=== PATIENT | female | born 1970 | race Caucasian/White ===

== ENCOUNTER 2017-01-23 17:48 | Emergency (ER) | payer OTHER ==
[~2017-01-23] VITALS: Ht 157.5 cm; Wt 122.5 kg
[~2017-01-23 17:48] MED LIST: ASPI81CT89 PO; ATI.5 PO; CARV3.12 PO; LOVA10TA2 PO; METF500T PO; ORE25 PO; RANI-287 PO; SYN.05 PO; [UNRECOGNIZED DRUG - CODE] PO; [UNRECOGNIZED DRUG - CODE] PO
[2017-01-23 17:49] VITALS: BP 158/93
[2017-01-23 19:33] LABS: BASOPHILS # (AUTO) 0.1 K/uL (0.00-0.22); EOSINOPHILS # (AUTO) 0.4 K/uL (0-0.4); EOSINOPHILS % (AUTO) 3.8 % (0.0-4.0); HEMATOCRIT 38.9 % (36-48); HEMOGLOBIN 12.6 g/dL (12.0-16.0); LYMPHOCYTES # (AUTO) 2.5 K/uL (2.5-16.5); LYMPHOCYTES % (AUTO) 21.4 % (20.5-51.1); MEAN CORPUSCULAR HEMOGLOBIN 27 pg (27-31); MEAN CORPUSCULAR HGB CONC 32 g/dL (33-37); MEAN CORPUSCULAR VOLUME 83 fL (80-94); MONOCYTES # (AUTO) 0.6 K/uL (0.8-1.0); MONOCYTES % (AUTO) 5.5 % (1.7-9.3); NEUTROPHILS % (AUTO) 68.3 % (42.2-75.2); PLATELET COUNT (AUTO) 288 K/uL (140-450); RED BLOOD CELL COUNT(AUTO) 4.71 MIL/uL (4.20-5.40); RED CELL DISTRIBUTION WIDTH 12.7 % (11.6-13.7); WHITE BLOOD COUNT (AUTO) 11.6 K/uL (4.8-10.8)
[2017-01-23 19:36] LABS: APPEARANCE,URINE CLEAR (CLEAR); BILIRUBIN,URINE NEGATIVE (NEGATIVE); BLOOD, URINE NEGATIVE (NEGATIVE); COLOR,URINE YELLOW (YELLOW); LEUKOCYTE ESTERASE ,URINE NEGATIVE (NEGATIVE); NITRITE, URINE NEGATIVE (NEGATIVE); UGLUCOSE NEGATIVE (NEGATIVE)
[2017-01-23 19:46] LABS: ANION GAP 15.1 (8-16); CARBON DIOXIDE 23.6 mmol/L (21-32); CHLORIDE 106 mmol/L (98-107); CREATININE 0.9 mg/dL (0.6-1.3); GFR ARICAN-AMERICAN 86 mL/min (>90); GLUCOSE 118 mg/dL (74-106); POTASSIUM 3.7 mmol/L (3.5-5.1); SODIUM SERUM 141 mmol/L (136-145); UREA NITROGEN, BLOOD 14 mg/dL (7-18)
[2017-01-23 19:46] LABS: BARBITURATE, URINE NEG. ng/ml (NEG <=200); BENZODIAZEPINE, URINE NEG. ng/mL (NEG <=200); CANNABINOID, URINE NEG. ng/mL (NEG <=50); COCAINE, URINE NEG. ng/mL (NEG <=300); OPIATE, URINE NEG. ng/mL (NEG <=2000); PHENCYCLIDINE SCREEN,URINE NEG. ng/mL (NEG <=25)
[2017-01-23 19:49] LABS: ALBUMIN 3.3 g/dL (3.4-5.0); ASPARTATE AMINOTRANSFERASE 28 U/L (15-37); TOTAL BILIRUBIN 0.3 mg/dL (0.0-1.0)
[2017-01-23 19:50] LABS: ACETAMINOPHEN < 0.5 ug/ml (10-30); SALICYLATE < 2.8 mg/dL (2.8-20.0)
[2017-01-23] MEDS: NACL 0.9% 1,000 ML IV ONE (19:53)
[2017-01-23 21:18] VITALS: BP 154/80
== END 2017-01-23 21:18 | disposition home or self-care (01) ==
LOC: MED 17:48
DX: T38.1X2A Poisoning by thyroid hormones and substitutes, intentional self-harm, initial encounter (principal); Y92.89 Other specified places as the place of occurrence of the external cause; E11.9 Type 2 diabetes mellitus without complications; I10 Essential (primary) hypertension
CPT/HCPCS: 36415; 80053; 80305; 81003; 81025; 85025; 93005; 96360; 99285; G0480; G0482; J7030

== ENCOUNTER 2021-04-12 23:25 | Inpatient (IN) | payer OTHER ==
[~2021-04-12] VITALS: Ht 157.5 cm; Wt 143.8 kg
[~2021-04-12 23:25] MED LIST changes: +ASPI-1822 PO; -ASPI81CT89 PO; +ESCI20TA PO; +FURO-570 PO; +IBUP-2213 PO; +MIRT-92 PO; +PRED20TA5 PO; +[UNRECOGNIZED DRUG - CODE] PO; -[UNRECOGNIZED DRUG - CODE] PO
[2021-04-12 23:38] VITALS: BP 161/86
[2021-04-13] VITALS (21 sets, daily range): BP systolic 90–139; BP diastolic 42–91
[2021-04-13] MEDS ORDERED: ETOMIDATE 20 MG/10 ML VIAL IVP ONE
[2021-04-13] MEDS ORDERED: EPINEPHrine PFS 0.1 MG/ML SYR IVP ONE
[2021-04-13] MEDS ORDERED: ROCURONIUM 50 MG/5 ML VIAL IV ONE
[2021-04-13] MEDS ORDERED: SUCCINYLCHOLINE CHLORIDE 200 MG/10 ML VIAL IV ONE
--- NOTE | 2021-04-13 00:01 | NUR ---
PT MOVED TO BED #10
--- NOTE | 2021-04-13 00:05 | NUR ---
PATIENT BIBA FROM HOME C/O SOB AND C/P THAT STARTED AT 2100. PATIENT 10/10 PAIN IN THE CHEST WITH PRESSURE AND TIGHTNESS THAT WAS UNPROVOKED. PATIENT DENIES TAKING ANY MEDICATION PRIOR TO ARRIVAL. PATIENT HR INCREASED TO 110s. PATIENT WAS ON RA AT 99%. STOMACH SLIGHTLY DISTENDED AND FIRM. AAOX4. GCS 15. PMH: HDL, ASTHMA, HEART MURMUR, DM ALLX: PENICILLINS, ACETAMINOPHEN, CODEINE, HYDROCODONE, VICODIN.
[2021-04-13] MEDS ORDERED: ONDANSETRON 4 MG/2 ML VIAL ONE (00:27)
[2021-04-13] MEDS ORDERED: MORPHINE SULFATE 4 MG/ML SYR ONE (00:28)
--- NOTE | 2021-04-13 00:32 | NUR ---
PATIENT RECEIVED MORPHINE AND O2 SATURATION DROPPED TO 89% WHEN PATIENT WAS ORIGINALLY AT 99%. PATIENT PLACED ON 2L NC AND MIKEY KING MADE AWARE.
[2021-04-13 00:49] LABS: ALBUMIN 3.1 g/dL (3.4-5.0); ANION GAP 11.9 (8-16); CARBON DIOXIDE 29.2 mmol/L (21-32); POTASSIUM 4.1 mmol/L (3.5-5.1); TOTAL BILIRUBIN 0.1 mg/dL (0.0-1.0)
[2021-04-13 00:55] LABS: HEMATOCRIT 38.2 % (36-48); HEMOGLOBIN 12.4 g/dL (12.0-16.0); MEAN CORPUSCULAR HEMOGLOBIN 27 pg (27-31); MEAN CORPUSCULAR HGB CONC 32 g/dL (33-37); MEAN CORPUSCULAR VOLUME 84.8 fL (80-94); RED BLOOD CELL COUNT(AUTO) 4.51 MIL/uL (4.20-5.40); RED CELL DISTRIBUTION WIDTH 14.2 % (11.6-13.7); WHITE BLOOD COUNT (AUTO) 8.4 K/uL (4.8-10.8)
[2021-04-13 00:56] LABS: BASOPHILS # (AUTO) 0.1 K/uL (0.00-0.22); EOSINOPHILS # (AUTO) 0.5 K/uL (0-0.4); EOSINOPHILS % (AUTO) 5.4 % (0.0-4.0); LYMPHOCYTES # (AUTO) 2.8 K/uL (2.5-16.5); LYMPHOCYTES % (AUTO) 32.9 % (20.5-51.1); MONOCYTES # (AUTO) 0.8 K/uL (0.8-1.0); MONOCYTES % (AUTO) 9.8 % (1.7-9.3); NEUTROPHILS # (AUTO) 4.3 K/uL (1.8-7.7); NEUTROPHILS % (AUTO) 50.9 % (42.2-75.2); PLATELET COUNT (AUTO) 292 K/uL (140-450)
--- NOTE | 2021-04-13 00:58 | NUR ---
xray at bedside
[2021-04-13] MEDS ORDERED: NACL 0.9% 1,000 ML IV ONE (02:45)
[2021-04-13] MEDS ORDERED: ASPIRIN 325 MG TAB PO ONE (02:50)
[2021-04-13 03:34] LABS: APPEARANCE,URINE CLEAR (CLEAR); BILIRUBIN,URINE NEGATIVE (NEGATIVE); BLOOD, URINE TRACE-L (NEGATIVE); COLOR,URINE YELLOW (YELLOW); LEUKOCYTE ESTERASE ,URINE NEGATIVE (NEGATIVE); NITRITE, URINE NEGATIVE (NEGATIVE); PH,URINE 6.5 (5.0-9.0); UGLUCOSE 2+ (NEGATIVE)
[2021-04-13 03:39] LABS: RBC,URINE 0-5 /HPF (0-5); WBC,URINE 0-5 /HPF (0-5)
[2021-04-13 03:49] LABS: BARBITURATE, URINE NEGATIVE ng/ml (NEG <=200); BENZODIAZEPINE, URINE NEGATIVE ng/mL (NEG <=200); CANNABINOID, URINE NEGATIVE ng/mL (NEG <=50); COCAINE, URINE NEGATIVE ng/mL (NEG <=300); OPIATE, URINE POSITIVE ng/mL (NEG <=2000); PHENCYCLIDINE SCREEN,URINE NEGATIVE ng/mL (NEG <=25)
--- NOTE | 2021-04-13 04:05 | NUR ---
patient back from CT via [facility]
--- NOTE | 2021-04-13 04:08 | NUR ---
PATIENT BACK FROM CT LOOKING PALE, CYANOTIC, DIAPHORETIC, AND CRACKLES HEARD UPON EXHALATION. PATIENT VOMITED- FROTHING NOTED AT THE MOUTH AND PATIENT COMPLAINING OF DIFFICULTY BREATHING. ERMD MADE AWARE.
[2021-04-13] MEDS ORDERED: FAMOTIDINE 20 MG/2 ML VIAL ONE (04:11)
[2021-04-13] MEDS ORDERED: methylPREDNISolone SS 125 MG/2 ML VIAL ONE (04:11)
[2021-04-13] MEDS ORDERED: diphenhydrAMINE 50 MG/ML VIAL ONE (04:11)
[2021-04-13] MEDS ORDERED: EPINEPHrine 1 MG/ML AMP ONE (04:14)
[2021-04-13] MEDS ORDERED: INTUBATION KIT MC ONE (04:19)
[2021-04-13] MEDS ORDERED: IPRATROPIUM 0.02% 0.5 MG/2.5 ML NEBU INH ONE (04:21)
[2021-04-13] MEDS ORDERED: LEVALBUTEROL 0.63 MG/3 ML NEBU INH ONE (04:33)
[2021-04-13] MEDS ORDERED: DOPPLER MC ONE (04:42)
[2021-04-13] MEDS ORDERED: NOREPINEPHRINE 4 MG/4 ML VIAL IV ONE (04:50)
[2021-04-13] MEDS ORDERED: PROPOFOL 1000 MG/100 ML PREMIX 100 ML IV ONE ×2 (04:56→09:16)
--- NOTE | 2021-04-13 04:57 | NUR ---
X-Ray at bedside.
--- NOTE | 2021-04-13 05:00 | NUR ---
ATTEMPTED TO INSERT OG, RESISTANCE NOTED AT TIME. DR. KING ORDERED TO STOP OG INSERTION AT THE TIME.
[2021-04-13] MEDS ORDERED: LEVALBUTEROL 1.25 MG/0.5 ML NEBU INH ONE (05:08)
[2021-04-13] MEDS ORDERED: NOREPINEPHRINE 4 MG in DEXTROSE 5% 250 ML IV ONE (05:40)
[2021-04-13] MEDS ORDERED: PROPOFOL 200 MG/20 ML VIAL IV ONE (05:40)
[2021-04-13] MEDS ORDERED: EPINEPHrine 1 mg/mL 6 MG in DEXTROSE 5% 250 ML IV PRN (05:40)
[2021-04-13] MEDS ORDERED: ONDANSETRON 4 MG/2 ML VIAL IVP PRN ×2 (05:50→07:40)
--- NOTE | 2021-04-13 05:53 | NUR ---
# 16 FR Gary catheter with 10 ml utilizing sterile technique. Immediate return of 350 ml Yellow clear urine noted. Bedside drainage bag placed below level of bladder. Urine sample collected and sent to lab. Pt tolerated procedure well.
[2021-04-13] MEDS ORDERED: KETAMINE 500 MG/5 ML VIAL IVP ONE (06:00)
[2021-04-13] MEDS ORDERED: KETAMINE 500 MG/5 ML VIAL ONE (06:00)
[2021-04-13] MEDS ORDERED: methylPREDNISolone SS 125 MG/2 ML VIAL IVP SCH (06:00)
--- NOTE | 2021-04-13 06:00 | NUR ---
Reji Velasco MD at bedside assessing patient and per MD ordered for a bolus of ketamine 50mg and a ketamine drip 10mg/hr, and rocuronium 75mg IVP.
[2021-04-13] MEDS ORDERED: SODIUM BICARBONATE 8.4% PFS 50 MEQ/50 ML SYR IVP ONE ×2 (06:05)
[2021-04-13] MEDS ORDERED: ED NON STOCK ORDER 1 EA MISC IV ONE (06:10)
[2021-04-13] MEDS ORDERED: ALBUTEROL SULFATE/IPRATROPIU 3 ML SOL IH ONE (06:20)
[2021-04-13] MEDS ORDERED: diphenhydrAMINE 50 MG/ML VIAL IVP ONE (06:40)
[2021-04-13] MEDS ORDERED: FAMOTIDINE 20 MG/2 ML VIAL IV SCH (06:50)
--- NOTE | 2021-04-13 06:50 | NUR ---
refer to code sheet
--- NOTE | 2021-04-13 07:26 | NUR ---
Pt report given to FELICITAS ABRAHAM. Transfer of care at this time.
--- NOTE | 2021-04-13 07:27 | NUR ---
RECEIVED REPORT FROM SREE RN, TRANSFER OF CARE AT THIS TIME
--- NOTE | 2021-04-13 07:30 | NUR ---
PT ATTACHED TO DOLLY PUSHER AND VENT. PT HAS PROPOFOL RUNNING AT 18MCG/MIN, KETAMINE AT 10MCG/MIN AND LEVO 6MCG/MIN. RASS SCORE -4. VENT SETTINGS:PC 15, FIO2 100%, RATE 20, AND PEEP 10
[2021-04-13 07:34] LABS: CREATINE KINASE MB 88.1 ng/mL (0-3.6)
[2021-04-13] MEDS ORDERED: MORPHINE SULFATE 4 MG/ML SYR IVP PRN (07:40)
--- NOTE | 2021-04-13 08:00 | NUR ---
REPORT GIVEN TO CHINEDU ABRAHAM FOR ADMISSION TO ICU. ETA 20 MINS.
--- NOTE | 2021-04-13 08:00 | NUR ---
RECEIVED TELEPHONE REPORT FROM FELICITAS NURSE.
--- NOTE | 2021-04-13 08:20 | NUR ---
TRANSFERRED PATIENT FROM ED TO ICE WITH NO INCIDENT. PT IS INTUBATED. ETT IS IN [place] AND SECURED WITH ANCHOR-FAST. VENT CONNECTED TO RED OUTLET.ALARMS AUDIBLE. AMBU BAG AT BEDSIDE. RT ATTEMPTED ABG BUT NO SUCCESS. RT WILL TRY AGAIN. MD AND RN AWARE. WILL CONTINUE TO MONITOR PATIENT.
--- NOTE | 2021-04-13 08:20 | NUR ---
Patient will be admitted to care of DR CURTIS. Admited to ICU. Will go to room 8. Belongings list completed. Report to JAVIER/DEVANTE ABRAHAM.
--- NOTE | 2021-04-13 08:30 | NUR ---
PT ARRIVED AT UNIT VIA GURNEY. PT SEDATED, RASS -3. PT INTUBATED ETT TO VENT, AC/PC FIO2 100%, RATE 24, PEEP 10. PT SATURATING @ 92%, NO SOB NOTED. IV TO R HAND 22G PATENT INTACT, INFUSING LEVOPHED @ 4MCG/ MIN, PROPOFOL @ 38MCG/KG/MIN, IV TO L HAND 22G RUNNING KETAMINE @ 10ML/HR, IV TO R AC 20G PATENT INTACT, SL. VERNON CATH IN PLACE, DRAINING TO GRAVITY, SKIN INTACT. INITIAL ASSESSMENT DONE, ALL SAFETY PRECAUTION IN PLACE, MRSA SWAB TAKEN, WILL CONTINUE TO MONITOR.
[2021-04-13] MEDS ORDERED: ENOXAPARIN 40 MG/0.4 ML SYR SUBQ SCH (09:00)
[2021-04-13] MEDS ORDERED: DEXTROSE 50% 50 ML SYR IVP PRN (09:05)
[2021-04-13] MEDS ORDERED: hePARIN / DEXT 5% PREMIX 250 ML IV SCH (09:05)
[2021-04-13] MEDS ORDERED: HEPARIN PER PHARMACY MC PRN (09:05)
--- NOTE | 2021-04-13 09:05 | NUR ---
SPOKE TO DR LUCAS REGARDING PT ELEVATED TROPONIN PER DR LUCAS TO ORDER HEPARIN DRIP, ALSO TALKED TO PT REGARDING KETAMINE DRIP, PER DR TO STOP AND ORDER FENTANYL DRIP INSTEAD. WILL CONTINUE WITH ORDERS.
--- NOTE | 2021-04-13 09:10 | NUR ---
G DONE. ANTOINE YODER. WAITING FOR CALL BACK.
[2021-04-13] MEDS: PROPOFOL 1000 MG/100 ML PREMIX 100 ML IV PRN ×5 (09:20→22:25)
[2021-04-13 09:40] LABS: PROTHROMBIN TIME 8.8 secs (10.8-13.4)
[2021-04-13] MEDS ORDERED: FUROSEMIDE 100 MG/10 ML VIAL IV SCH (10:00)
--- NOTE | 2021-04-13 10:00 | NUR ---
DR VASQUEZ AT BEDSIDE, PER DR TO ORDER FUROSEMIDE 40MG IVP ONCE AND TO MAKE SURE NO OTHER DR ORDER ANY MORE DIURETICS. WILL CONTINUE WITH ORDERS. ALSO PER DR VASQUEZ TO HOLD OFF ON HEPARIN UNTIL HE CONFIRM ECHO. WILL CONTINUE TO MONITOR.
--- NOTE | 2021-04-13 10:04 | NUR ---
PATIENT HAS BEEN SCREENED AND CATEGORIZED HIGH NUTRITION RISK. PATIENT WILL BE SEEN WITHIN 1-2 DAYS OF ADMISSION. 04/13/21-04/14/[address]
--- NOTE | 2021-04-13 10:05 | NUR ---
GOT CALL FROM MD YODER ABOUT ABG RESULTS. NEW VENT CHANGES ARE PC 20, RR 24, +10, 100% WILL FOLLOW WITH CHANGES.
[2021-04-13] MEDS: FAMOTIDINE 20 MG/2 ML VIAL IVP SCH (10:16)
--- NOTE | 2021-04-13 11:00 | NUR ---
CALLED PICC RN REGARDING DR ORDER FOR PICC AWAITING FOR CALL BACK
--- NOTE | 2021-04-13 11:00 | NUR ---
ECHO CARDIOGRAM DONE, PER DR VASQUEZ TO NOT ADMINISTER HEPARIN DRIP, NO OTHER ANTICOAGULANT ORDER FOR NOW, WILL CONTINUE WITH ORDERS.
--- NOTE | 2021-04-13 11:09 | NUR ---
FNS CONSULT FOR TUBE FEEDING RECEIVED
[2021-04-13] MEDS: fentaNYL citrate 1 MG in NACL 0.9% 80 ML IV PRN ×2 (12:00→21:25)
--- NOTE | 2021-04-13 12:45 | NUR ---
RECEIVED CONSENT FROM MARLON DOW FOR PICC LINE INSERTION.
[2021-04-13] MEDS: BLOOD GLUCOSE MONITORING 1 DEV DEV FS SCH ×2 (13:00→18:40)
[2021-04-13] MEDS: INSULIN LISPRO SLIDING SCALE 100 UNITS/ML VIAL SUBQ PRN ×2 (13:00→18:39)
--- NOTE | 2021-04-13 13:10 | NUR ---
CALLED PICC RN AGAIN LEFT MESSAGE FOR PICC
[2021-04-13] MEDS ORDERED: METO25TE2 PO (13:36)
[2021-04-13] MEDS ORDERED: [UNRECOGNIZED DRUG - CODE] PO (13:36)
[2021-04-13] MEDS ORDERED: GABA250S1 PO (13:36)
[2021-04-13] MEDS ORDERED: MIRT-33 PO (13:36)
[2021-04-13] MEDS ORDERED: ESCI20TA PO (13:36)
[2021-04-13] MEDS ORDERED: RANO500T7 PO (13:36)
[2021-04-13] MEDS ORDERED: LEVO0.2T5 PO (13:36)
[2021-04-13] MEDS ORDERED: LISI10TA30 PO (13:37)
--- NOTE | 2021-04-13 14:06 | NUR ---
04/13/21 RD INITIAL ASSESSMENT COMPLETED PLEASE REFER TO NUTRITION ASSESSMENT UNDER CARE ACTIVITY FOR ESTIMATED NUTRITIONAL NEEDS. 1. RECOMMEND GLUCERNA 1.2 @ 60 ML/HR; START AT 10 ML/HR INCREASE BY 10 ML/HR Q6H -THIS WILL PROVIDE 1728 KCAL/DAY AND 86 GM OF PROTEIN/DAY, MEETING ADEQUATE NUTRIENT NEEDS 2. RECOMMEND FREE WATER FLUSH OF [address] TO FOLLOW-UP 2-3 DAYS, HIGH RISK SITA RIVERA, CRISTIAN
--- NOTE | 2021-04-13 15:00 | NUR ---
CALLED PICC RN LEFT MESSAGE REGARDING PICC ORDER AWAITING FOR CALL BACK.
--- NOTE | 2021-04-13 16:10 | NUR ---
CLEANED AND CHANGED PT, PT TOLERATED WELL, NO DISTRESS NOTED, WILL CONTINUE TO MONITOR.
--- NOTE | 2021-04-13 16:36 | NUR ---
DC PLANNING: CM SPOKE WITH THE PATIENT SON NEMESIO BY PHONE REGARDING DC PLANNING. CONFIRMED THE PATIENTS ADDRESS AND PHONE NUMBER PER HER FACE SHEET. THE PATIENTS CORRECT ADDRESS IS [address] [place] [address] IN [place], THE PHONE NUMBER ON THE FACE SHEET IS CORRECT. THE PATIENT LIVES IN A SECOND FLOOR APARTMENT WITH STAIR ACCESS WITH HER 2 SONS AND DAUGHTER IN [place]. SHE HAS DME OF [facility] WITH A SEAT AND HAD HOME HEALTH ABOUT A YEAR AGO, FAMILY CAN'T REMEMBER THE AGENCY NAME. THE PATIENT IS ABLE TO WALK A FEW FEET BEFORE SHE BECOMES SOB AND HAS DIFFICULTY CLIMBING THE STAIRS TO HER APARTMENT. SHE NEEDS ASSISTANCE WITH DRESSING AND SOMETIMES WITH BATHING. NEMESIO ASKED ABOUT THE PATIENT TRANSFERRING TO [facility] FOR TAV[facility], CM EXPLAINED THAT A LAYOUT INSPECTOR HAS SEEN THE PATIENT AND THAT IT WILL BE HIS DECISION IF SHE NEEDS TO BE TRANSFERRED. [place] ALSO EXPLAINED THAT IE WOULD BE CONTACTED TO CONFIRM AUTHORIZATION AND THAT THE ACCEPTING HOSPITAL IS CONTRACTED WITH THEM. NEMESIO ASKED THAT HIS BROTHER VICTOR M BE CALLED IN THE FUTURE HE IS MORE FAMILIAR WITH HIS MOTHERS HEALTH HISTORY AND INSURANCE. CM WILL FOLLOW FOR NEEDS.
[2021-04-13] MEDS: NOREPINEPHRINE 4 MG in DEXTROSE 5% 250 ML IV PRN (16:52)
[2021-04-13 19:23] LABS: ALBUMIN 2.7 g/dL (3.4-5.0); ANION GAP 15.6 (8-16); CARBON DIOXIDE 27.9 mmol/L (21-32); CREATININE 1.7 mg/dL (0.6-1.3); POTASSIUM 4.5 mmol/L (3.5-5.1); TOTAL BILIRUBIN 0.4 mg/dL (0.0-1.0)
--- NOTE | 2021-04-13 19:31 | NUR ---
ENDORSED PT TO SENIOR TRIAL ATTORNEY NURSE FOR CONTINUOUS OF CARE
[2021-04-13] MEDS: RANOLAZINE 500 MG TER PO SCH (22:18)
[2021-04-14] VITALS (28 sets, daily range): BP systolic 83–151; BP diastolic 16–99
[2021-04-14] MEDS: PROPOFOL 1000 MG/100 ML PREMIX 100 ML IV PRN ×7 (01:00→19:28)
--- NOTE | 2021-04-14 01:41 | NUR ---
[facility] call son called back for updates and per Nina, [facility] is the family that needs to be contacted for updates.
--- NOTE | 2021-04-14 01:50 | NUR ---
patient used bed diallo for urine collection-- tolerated well. helped with pericare.
--- NOTE | 2021-04-14 02:03 | NUR ---
PATIENT SEDATED ON PROPOFOL 40 MCG, FENTANYL 1 MCG, LEVOPHED 2 MCG. PATIENT HAS ET- TUBE AC/PC RATE 24. P.C 26,FI02 30%, PEEP 8. SAT96%.LUNGS DIMINISH NO COUGH.ON MONITOR SINUS WITH LEFT BBB. HEART RATE 81. TEMP 99.4 PATIENT IS OBESE WT 350 LBS. ABDOMEN OBESE SKIN INTACT. BLOOD SUGAR 0000 355 COVERED WITH HUMALOG 10 UNITS S.Q. HAS F/C DRAINING YELLOW URINE DR. SKELTON CALLED 2355 ABOUT RESULTS OF TROPONIN 30.245, CMP RESULTS AND EKG SINUS WITH LEFT BBB.NO ORDERS GIVEN AT THIS TIME. PATIENT HAS A PATIENT HAS A NGT CLAMPED MEDS GIVEN ONLY.
[2021-04-14] MEDS: NOREPINEPHRINE 4 MG in DEXTROSE 5% 250 ML IV PRN (05:00)
[2021-04-14] MEDS ORDERED: fentaNYL citrate 0.05 MG/ML VIAL ONE (05:19)
[2021-04-14] MEDS: fentaNYL citrate 1 MG in NACL 0.9% 80 ML IV PRN ×3 (05:31→23:30)
[2021-04-14] MEDS: BLOOD GLUCOSE MONITORING 1 DEV DEV FS SCH ×4 (06:00→17:47)
[2021-04-14 06:27] LABS: CREATINE KINASE MB 99.4 ng/mL (0-3.6); HEMATOCRIT 37.9 % (36-48); HEMOGLOBIN 12.2 g/dL (12.0-16.0); LYMPHOCYTES # (AUTO) 1.3 K/uL (2.5-16.5); LYMPHOCYTES % (AUTO) 7.5 % (20.5-51.1); MEAN CORPUSCULAR HEMOGLOBIN 27 pg (27-31); MEAN CORPUSCULAR HGB CONC 32 g/dL (33-37); MONOCYTES # (AUTO) 1.1 K/uL (0.8-1.0); MONOCYTES % (AUTO) 6.4 % (1.7-9.3); NEUTROPHILS # (AUTO) 14.7 K/uL (1.8-7.7); NEUTROPHILS % (AUTO) 86.1 % (42.2-75.2); PLATELET COUNT (AUTO) 339 K/uL (140-450); RED BLOOD CELL COUNT(AUTO) 4.51 MIL/uL (4.20-5.40); RED CELL DISTRIBUTION WIDTH 13.9 % (11.6-13.7)
[2021-04-14 06:31] LABS: ALBUMIN 2.5 g/dL (3.4-5.0); CARBON DIOXIDE 27.6 mmol/L (21-32); CREATININE 1.5 mg/dL (0.6-1.3); MAGNESIUM 1.8 mg/dL (1.8-2.4); POTASSIUM 3.6 mmol/L (3.5-5.1); TOTAL BILIRUBIN 0.5 mg/dL (0.0-1.0)
[2021-04-14 06:55] LABS: WHITE BLOOD COUNT (AUTO) 17.1 K/uL (4.8-10.8)
--- NOTE | 2021-04-14 07:20 | NUR ---
RECEIVED REPORT FROM CLINIC MANAGER NURSE. PT IS IN BEDREST. RIGHT ARM PICC CENTRAL CATH 2 LUMEN AND 20 G IV ON RIGHT HAND. LEVOPHED AT 3 MCG/MIN, PROPOFOL AT 40 MCG/MIN AND FENTANYL AT 1 MCG/MIN. ETT A/C PC FIO2 30%, RATE 24 AND PEEP 8. NG TUBE WITH CARDIAC DIET. VERNON IN PLACE. BED AT THE LOWEST POSITION, AND CALL LIGHT WITHIN REACH. WILL CONTINUE TO MONITOR AND CONTINUE WITH POC. .
[2021-04-14] MEDS ORDERED: VANCOMYCIN PER PHARMACY MC PRN (07:50)
--- NOTE | 2021-04-14 08:04 | NUR ---
PT ON MECHANICAL VENTILATOR WITH CHARTED SETTINGS. ETT IN PLACE AND SECURED WITH ANCHOR-FAST. VENT CONNECTED TO RED OUTLET. ALARMS AUDIBLE. AMBU BAG AT BEDSIDE. NO SOB OR DISTRESS NOTED. DECREASED PEEP TO +7. WILL TITRATE TOLERATED. WILL CONTINUE TO MONITOR PATIENT.
[2021-04-14] MEDS ORDERED: VANCOMYCIN 2,000 MG in DEXTROSE 5% 500 ML IV SCH (09:00)
--- NOTE | 2021-04-14 09:17 | NUR ---
CHANGE PROPOFOL TO 35 MCG/KG/MIN. WILL CONTINUE TO MONITOR.
[2021-04-14] MEDS: INSULIN LANTUS 100 UNITS/ML 10 ML VIAL SUBQ SCH ×2 (09:21→21:10)
[2021-04-14] MEDS: LEVOTHYROXINE 0.1 MG TAB PO SCH (09:22)
[2021-04-14] MEDS: FAMOTIDINE 20 MG/2 ML VIAL IVP SCH (09:22)
[2021-04-14] MEDS: RANOLAZINE 500 MG TER PO SCH (09:24)
[2021-04-14] MEDS: LEVOFLOXACIN 500 MG/D5W PREMIX 100 ML IV SCH (09:27)
--- NOTE | 2021-04-14 10:20 | NUR ---
DR VASQUEZ AT BEDSIDE, AWARE THAT PT HR IS BELOW 60, WILL CONTINUE TO MONITOR.
[2021-04-14] MEDS ORDERED: POTASSIUM CHLORIDE 10 MEQ TABER PO SCH (10:37)
[2021-04-14] MEDS: ATORVASTATIN 20 MG TAB PO SCH (11:35)
[2021-04-14] MEDS: INSULIN LISPRO SLIDING SCALE 100 UNITS/ML VIAL SUBQ PRN ×3 (12:24→17:48)
--- NOTE | 2021-04-14 12:46 | NUR ---
PLACED ANOTHER PROPOFOL BOTTLE. WILL CONTINUE TO MONITOR.
--- NOTE | 2021-04-14 15:20 | NUR ---
PT DESATURATING, RT AT BEDSIDE, PER RT POSSIBLE THAT THE ET TUBE IS LEAKING. ER DR WAS CALLED. DR MUSE [facility]
--- NOTE | 2021-04-14 15:55 | NUR ---
CAME TO BEDSIDE DUE TO VENT ALARMING, DECISION MADE TO REINTUBATE. DR MUSE FROM ER CHANGED ET TUBE ON PT. AFTER INUTBATION, COLOR CHANGE NOTED ON ENDTIDAL, XRAY DONE, PT HAD PNEUMOTHORAX. INSERTION OF CHEST TUBE BY DR MUSE. PT REMAINED ON VENT THROUGHOUT PROCEDURE. ASSISTED WITH LEN RT STUDENT. PT O2 SATS MONITORED.
--- NOTE | 2021-04-14 16:00 | NUR ---
1550 PT HEART RATE WENT DOWN TO 43 1MG ATROPINE WAS GIVEN PER ED DR INFANTE. 1553 PT HEART RATE PRESISTENTLY LOW AT 40, ANOTHER 1MG OF ATROPINE WAS GIVEN PER ED 155 PT WAS SUCCESSFULLY INTUBATED 7.5 TUBE TAPED AT 23 TO TEETH. 1607 XRAY WAS TAKEN, DR MUSE AT BEDSIDE EXAMINING XRAY, NOTICE PNEUMOTHORAX. 1609 RECEIVED PHONE CALL FROM RADIOLOGY CONFIRMING LARGE RIGHT PNEUMOTHORAX. [address]ASQUEZ AND DR LUCAS UPDATED REGARDING PT. 1730 CHEST TUBE SUCCESSFULLY INSERTED BY DR MUSE. Addendum: 04/14/21 at 1952 by Zakia Alvarez RN ROCURONIUM 100MG IVP GIVEN DURING INTUBATION
[2021-04-14 17:56] LABS: BASOPHILS % (AUTO) 0.1 % (0.0-2.0); HEMATOCRIT 34.8 % (36-48); HEMOGLOBIN 10.9 g/dL (12.0-16.0); LYMPHOCYTES # (AUTO) 1.4 K/uL (2.5-16.5); MEAN CORPUSCULAR HEMOGLOBIN 27 pg (27-31); MEAN CORPUSCULAR HGB CONC 32 g/dL (33-37); MEAN CORPUSCULAR VOLUME 85.2 fL (80-94); MONOCYTES # (AUTO) 1.8 K/uL (0.8-1.0); MONOCYTES % (AUTO) 11.4 % (1.7-9.3); NEUTROPHILS # (AUTO) 12.5 K/uL (1.8-7.7); NEUTROPHILS % (AUTO) 79.5 % (42.2-75.2); PLATELET COUNT (AUTO) 320 K/uL (140-450); RED BLOOD CELL COUNT(AUTO) 4.08 MIL/uL (4.20-5.40); RED CELL DISTRIBUTION WIDTH 14.6 % (11.6-13.7); WHITE BLOOD COUNT (AUTO) 15.7 K/uL (4.8-10.8)
--- NOTE | 2021-04-14 18:00 | NUR ---
SPOKE TO SON NAZ REGARDING PT CURRENT SITUATION. STATED UNDERSTANDING THAT HE WILL INFORM HIS BROTHER VICTOR M.
--- NOTE | 2021-04-14 18:00 | NUR ---
SPOKE TO DR VASQUEZ REGARDING PT BP IS NOW TRENDING DOWN, CURRENTLY IS AT 64/49, PER DR VASQUEZ TO RESTART LEVOPHED KEEP PT MAP ABOVE 80, WILL CONTINUE WITH ORDERS.
[2021-04-14 18:12] LABS: ALBUMIN 2.3 g/dL (3.4-5.0); ANION GAP 11.4 (8-16); CARBON DIOXIDE 29.2 mmol/L (21-32); CREATININE 1.8 mg/dL (0.6-1.3); POTASSIUM 5.6 mmol/L (3.5-5.1); TOTAL BILIRUBIN 0.3 mg/dL (0.0-1.0)
[2021-04-14 18:16] LABS: PROTHROMBIN TIME 10.2 secs (10.8-13.4)
--- NOTE | 2021-04-14 18:16 | NUR ---
RT NARA AND RT MARCELLA STAYED THROUGHOUT PROCEDURE.
--- NOTE | 2021-04-14 18:16 | NUR ---
VENT CHECK. NOTICED PATIENT NOT GETTING VOLUMES BUT MAINTAINING SPO2 94-98% . ER DR CALLED STAT. DR MUSE AT BEDSIDE DECIDES TO REINTUBATE PATIENT. REINTUBATION DONE WITH 7.5 ETT AT 23 CM AT TEETH. ETT IN PLACE AND SECURED WITH ANCHOR-FAST. TUBE PLACEMENT CONFIRMED BY COLOR CHANGE, AND CXR. CXR SHOWED TENSION PNEUMOTHORAX. CHEST TUBE INSERTED BY DR MUSE. PLACED PATIENT ON SETTINGS PC 34 RR 24 FIO2 100% PEEP 10. DR MUSE AGREES ON SETTINGS. PAGED MD ESPINAL FOR CONFIRMATION ON SETTINGS AND GOT CALL BACK CONFIRMING SETTINGS. NEW ORDER TO GET A BLOOD GAS. WILL FOLLOW WITH ORDER.
--- NOTE | 2021-04-14 18:30 | NUR ---
DR. MUSE SPOKE TO DR LUCAS, PER BOTH DR TO KEEP PT SEDATED RASS -4, WILL CONTINUE WITH ORDER
--- NOTE | 2021-04-14 18:53 | NUR ---
ABG DONE. PAGED MD ESPINAL FOR RESULTS. NOC SHIFT RT WAITING FOR CALL BACK.
[2021-04-14] MEDS ORDERED: NACL 0.9% 1,000 ML IV SCH (19:00)
--- NOTE | 2021-04-14 19:00 | NUR ---
CALLED DR ESPINAL REGARDING PT BP IS DROPPING, CURRENTLY 83/57, PER DR VASQUEZ, TO KEEP MAP ABOVE 80, LEVOPHED CURRENTLY @ 24MCG/ MIN, PER DR ESPINAL TO ORDER 1 L BOLUS NS AND TO START PT ON NEOSYNEPHRINE, WILL CONTINUE WITH ORDERS.
[2021-04-14] MEDS ORDERED: NOREPINEPHRINE 4 MG/4 ML VIAL IV ONE (19:08)
--- NOTE | 2021-04-14 19:10 | NUR ---
RECEIVED REPORT FROM DAY SHIFT RN. PATIENT IS RASS-4. SR WITH BBB ON MONITOR. ETT TO VENT, A/COUNT TEAM MEMBER FIO2 100, RATE 24, PEEP 10, SPO2 100. NGT IN PLACE, FEEDING HELD AT THIS TIME. VERNON INSERTED 04/13, DRAINING YELLOW CLOUDY URINE TO GRAVITY. NO BM. IV SITES, CLEAN, DRY, INTACT, ON MITRA PICC DOUBLE LUMEN INFUSING, LEVOPHED AT 28 MCG/MIN, OMAR AT 50 MCG/MIN, FENTANYL AT 1 MCG/KG/MIN, AND PROPOFOL AT 40 MCG/KG/MIN, AND ON RH 20G SALINE LOCKED. TECHNICAL ASSISTANCE CONSULTANT, PULSE OXIMETER, AND SAFETY MEASURES IN PLACE. BED LOCKED AND IN LOW POSITION, HEAD OF BED AT 30 DEGREES. WILL CONTINUE TO MONITOR.
[2021-04-14] MEDS: PHENYLEPHRINE 40 MG in NACL 0.9% 250 ML IV PRN (19:20)
[2021-04-14] MEDS: NOREPINEPHRINE 16 MG in DEXTROSE 5% 250 ML IV PRN (19:49)
--- NOTE | 2021-04-14 19:55 | NUR ---
ENDORSED CARE TO FIRE DEPARTMENT MARINE ENGINEER NURSE FOR CONTINUITY OF CARE.
--- NOTE | 2021-04-14 20:01 | NUR ---
xray noted ETT still in right mainstem. moved ETT back and is now secure at 20 @ teeth
--- NOTE | 2021-04-14 21:10 | NUR ---
HELD SCHEDULED HEPARIN, PATIENT LOSS APPROXIMATELY 500 ML OF BLOOD PER DAY SHIFT RN. ADMINISTERED LANTUS, LAST BLOOD SUGAR 207. WILL CONTINUE TO MONITOR.
--- NOTE | 2021-04-14 22:30 | NUR ---
PATIENT SON, KATLYN, CALLED. UPDATED ON PATIENT STATUS AND CONDITION. ALL QUESTIONS ANSWERED. WILL CONTINUE TO MONITOR.
[2021-04-15] VITALS (31 sets, daily range): BP systolic 91–160; BP diastolic 54–94
[2021-04-15] MEDS: BLOOD GLUCOSE MONITORING 1 DEV DEV FS SCH ×4 (00:32→17:52)
[2021-04-15] MEDS: INSULIN LISPRO SLIDING SCALE 100 UNITS/ML VIAL SUBQ PRN ×4 (00:34→17:53)
--- NOTE | 2021-04-15 00:35 | NUR ---
CHECKED PATIENT BLOOD SUGAR, 223, COVERED WITH 4 UNITS INSULIN PER MD SLIDING SCALE. WILL CONTINUE TO MONITOR.
[2021-04-15] MEDS: PROPOFOL 1000 MG/100 ML PREMIX 100 ML IV PRN ×6 (00:41→18:48)
--- NOTE | 2021-04-15 02:39 | NUR ---
CHECKED ON PATIENT, RASS-4, FLACC 0. WILL CONTINUE TO MONITOR.
--- NOTE | 2021-04-15 04:30 | NUR ---
PLACED BEAR HUGGER ON PATIENT, TEMPERATURE 98.0 DEGREES. RASS-4, FLACC 0, PERRL. WILL CONTINUE TO MONITOR.
--- NOTE | 2021-04-15 05:30 | NUR ---
PROVIDED CHG BATH, ORAL CARE, VERNON CARE, AND HYGIENE CARE. WILL CONTINUE TO MONITOR.
--- NOTE | 2021-04-15 06:00 | NUR ---
CHECKED PATIENT BLOOD SUGAR, 251, COVERED WITH 6 UNITS PER MD SLIDING SCALE. WILL CONTINUE TO MONITOR. WILL ENDORSED TO DAY SHIFT RN.
[2021-04-15 06:41] LABS: ANION GAP 17.4 (8-16); CARBON DIOXIDE 22.6 mmol/L (21-32); CREATININE 2.1 mg/dL (0.6-1.3)
[2021-04-15 06:48] LABS: BASOPHILS % (AUTO) 0.1 % (0.0-2.0); EOSINOPHILS # (AUTO) 0.1 K/uL (0-0.4); EOSINOPHILS % (AUTO) 0.4 % (0.0-4.0); HEMATOCRIT 30.4 % (36-48); HEMOGLOBIN 9.9 g/dL (12.0-16.0); LYMPHOCYTES # (AUTO) 3.3 K/uL (2.5-16.5); LYMPHOCYTES % (AUTO) 19.4 % (20.5-51.1); MEAN CORPUSCULAR HEMOGLOBIN 27 pg (27-31); MEAN CORPUSCULAR HGB CONC 33 g/dL (33-37); MEAN CORPUSCULAR VOLUME 84.4 fL (80-94); MONOCYTES # (AUTO) 1.8 K/uL (0.8-1.0); MONOCYTES % (AUTO) 10.4 % (1.7-9.3); NEUTROPHILS # (AUTO) 11.8 K/uL (1.8-7.7); NEUTROPHILS % (AUTO) 69.7 % (42.2-75.2); PLATELET COUNT (AUTO) 306 K/uL (140-450); RED CELL DISTRIBUTION WIDTH 14.4 % (11.6-13.7)
[2021-04-15 06:55] LABS: MAGNESIUM 1.7 mg/dL (1.8-2.4); PHOSPHORUS 4.8 mg/dL (2.5-4.9)
--- NOTE | 2021-04-15 07:06 | NUR ---
CHECKED ON PATIENT. RASS-4, FLACC 0. WILL CONTINUE TO MONITOR. WILL ENDORSE TO DAY SHIFT RN.
[2021-04-15 07:08] LABS: HEPATITIS A ANTIBODY IGM Negative (Negative); HEPATITIS B CORE AB TOTAL Negative (Negative); HEPATITIS B SURFACE ANTIBODY Non Reactive (.); HEPATITIS B SURFACE ANTIGEN Negative (Negative)
--- NOTE | 2021-04-15 07:15 | NUR ---
Received pt from evening or night nurse supervisor ,vented via ETT with 100% FIO2,saturating well, SR to ST, not in distress, BP stable with levophed at 14 mcg/min, neosynephrine 50 mcg/min for BP support, with marie catheter patent connected to drainage bag, with picc line via right upper arm.
--- NOTE | 2021-04-15 07:35 | NUR ---
ENDORSED CARE TO DAY SHIFT NURSE, ALEKSANDRA ABRAHAM, FOR CONTIUITY OF CARE.
--- NOTE | 2021-04-15 07:39 | NUR ---
RECEIVED ON A ZopimSCAPE R860 VENTILATOR PLUGGED INTO RED OUTLET TOLERATING WELL WITHOUT ADVERSE REACTIONS NOTED TO AN ENDOTRACHEAL TUBE #7.5 SECURED AT 20cm TEETH/GUM LINE WITH AN ANCHOR FAST CUFF PRESSURE CHECKED NOTED AMBU BAG AT BEDSIDE NO DISTRESS NOTED GOOD CHEST RISE AIRWAY PATENT
--- NOTE | 2021-04-15 08:00 | NUR ---
Right chest tube intact connected to drainage chamber with sero sanguinous output connected to 20 cm suction.
[2021-04-15] MEDS: NOREPINEPHRINE 16 MG in DEXTROSE 5% 250 ML IV PRN (08:09)
[2021-04-15] MEDS: fentaNYL citrate 1 MG in NACL 0.9% 80 ML IV PRN ×2 (08:17→18:50)
--- NOTE | 2021-04-15 08:30 | NUR ---
High troponin result-19.57 as called by lab, to inform the DR
[2021-04-15] MEDS: LEVOFLOXACIN 500 MG/D5W PREMIX 100 ML IV SCH (08:52)
[2021-04-15] MEDS: FAMOTIDINE 20 MG/2 ML VIAL IVP SCH (08:53)
[2021-04-15] MEDS: ATORVASTATIN 20 MG TAB PO SCH (08:54)
[2021-04-15] MEDS: LEVOTHYROXINE 0.1 MG TAB PO SCH (08:55)
[2021-04-15] MEDS: INSULIN LANTUS 100 UNITS/ML 10 ML VIAL SUBQ SCH ×2 (08:59→21:00)
--- NOTE | 2021-04-15 09:26 | NUR ---
04/15/21 RD FOLLOW UP COMPLETED PLEASE REFER TO NUTRITION ASSESSMENT UNDER CARE ACTIVITY FOR ESTIMATED NUTRITIONAL NEEDS. 1.CONTINUE GLUCERNA 1.2 @ 60 ML/HR; START AT 10 ML/HR INCREASE BY 10 ML/HR Q6H -THIS WILL PROVIDE 1728 KCAL/DAY AND 86 GM OF PROTEIN/DAY, MEETING ADEQUATE NUTRIENT NEEDS 2. RECOMMEND FREE WATER FLUSH OF [address] TO FOLLOW-UP 2-3 DAYS, HIGH RISK NASH TAMEZ, CRISTIAN
[2021-04-15] MEDS ORDERED: VANCOMYCIN 2,000 MG in NACL 0.9% 500 ML IV SCH (10:00)
--- NOTE | 2021-04-15 10:00 | NUR ---
Dr Wesley Walker here, seen pt, noted all parameters, continue plan of care
--- NOTE | 2021-04-15 11:14 | NUR ---
RESTING WELL GOOD CHEST RISE ENDOTRACHEAL SUCTION FOR SMALL THICK YELLOW WITH BLOOD TINGE SECRETIONS AIRWAY PATENT
--- NOTE | 2021-04-15 12:00 | NUR ---
Still on levophed drip ,on panfilo syne[phrine drip for blood pressure, continue to observe.
--- NOTE | 2021-04-15 14:23 | NUR ---
NO DISTRESS NOTED GOOD CHEST RISE AIRWAY PATENT REVIEWED CXR 04/15 AT 0600 "NO OBVIOUS PNEUMOTHORAX" PEAK PRESSURE LESS THAN [id number] CHANGED MODE TO PRVC
--- NOTE | 2021-04-15 14:28 | NUR ---
STABLE NO APPARENT DISTRESS NOTED EQUAL CHEST RISE GOOD AERATION THROUGHOUT BILATERAL LUNG JAIN AIRWAY
--- NOTE | 2021-04-15 15:30 | NUR ---
Dr Jeffery bark skinner here, seen pt, noted all parameters, noted all blood works result including troponin of 19.57, no further orders, continue plan of care.
--- NOTE | 2021-04-15 16:48 | NUR ---
NO SOB NOTED EQUAL CHEST RISE ENDOTRACHEAL SUCTION FOR MODERATE THIN YELLOW WITH BLOOD TINGE SECRETIONS AIRWAY PATENT
--- NOTE | 2021-04-15 17:21 | NUR ---
Pt febrile -101 F, warm to touch, tachycardic as well, Dr Helms informed by phone, he said the pt has allergies to a lot of meds including tylenol, can not give motrin due to high creatinine, so just apply cooling measures. Ice pack applied to both groin, axilla, forehead, continue to observe.
[2021-04-15] MEDS: PHENYLEPHRINE 40 MG in NACL 0.9% 250 ML IV PRN (18:54)
--- NOTE | 2021-04-15 19:03 | NUR ---
temp rechecked-99 Still vented via ett with levophed, neosynephrine, fentanyl,drip with right chest tube in situ continue plan of care endorsed to security shift manager
--- NOTE | 2021-04-15 19:10 | NUR ---
RECEIVED PATIENT ON BED WITH HOB ELEVATED TO 30 DEGREE,SEDATED WITH CONTINOUS PROPOFOL DRIP AT 45 MCG/KG/MIN AND ON FENTanyl at 1 MCG/KG/HR VIA PICC LINE TO RIGHT UPPER ARM. ORALLY INTUBATED AND VENTILATED AT 100% FIO2. WITH CHEST TUBE IN SITU TO RIGHT MID AXILLARY CONNECTED TO LOW CONTINOUS SUCTION DRAINING TO SEROSANGUINOUS OUTPUT. CARDIACSCOPE SHOWS ON SINUS RHYTHM WITH BBB. IV DRIP IN PROGRESS LEVOPHED AT 13 MCG/MIN AND NEOSYNEPHRINE AT 40 MCG/MIN VIA PICC LINE TO RIGHT UPPER ARM; PATENT AND INTACT. ABDOMEN IS SOFT, VERY OBESE. HYPOACTIVE BOWEL SOUND.ON CONTINOUS TUBE FEEDING GLUCERNA 1.2 AT 10 ML./HR VIA NGT. PATENT AND INTACT. WITH VERNON CATH IN PLACE DRAINING TO CLOUDY YELLOW URINE OUTPUT; INTACT.
--- NOTE | 2021-04-15 20:30 | NUR ---
ORAL CARE DONE WITH VAP KIT.
[2021-04-16] VITALS (31 sets, daily range): BP systolic 84–125; BP diastolic 46–90
[2021-04-16] MEDS: PROPOFOL 1000 MG/100 ML PREMIX 100 ML IV PRN ×5 (00:30→23:09)
[2021-04-16] MEDS: BLOOD GLUCOSE MONITORING 1 DEV DEV FS SCH ×4 (00:40→18:00)
[2021-04-16] MEDS: INSULIN LISPRO SLIDING SCALE 100 UNITS/ML VIAL SUBQ PRN ×3 (00:40→13:18)
[2021-04-16] MEDS: fentaNYL citrate 1 MG in NACL 0.9% 80 ML IV PRN (01:54)
--- NOTE | 2021-04-16 03:30 | NUR ---
MORNING BED BATH DONE; WOUND CARE DONE.
[2021-04-16] MEDS: NOREPINEPHRINE 16 MG in DEXTROSE 5% 250 ML IV PRN (04:30)
[2021-04-16 06:22] LABS: MAGNESIUM 1.9 mg/dL (1.8-2.4); PHOSPHORUS 3.4 mg/dL (2.5-4.9)
[2021-04-16 06:25] LABS: BASOPHILS % (AUTO) 0.3 % (0.0-2.0); EOSINOPHILS # (AUTO) 0.4 K/uL (0-0.4); EOSINOPHILS % (AUTO) 3.3 % (0.0-4.0); HEMATOCRIT 23.5 % (36-48); HEMOGLOBIN 7.8 g/dL (12.0-16.0); LYMPHOCYTES # (AUTO) 1.8 K/uL (2.5-16.5); MEAN CORPUSCULAR HEMOGLOBIN 28 pg (27-31); MEAN CORPUSCULAR HGB CONC 33 g/dL (33-37); MEAN CORPUSCULAR VOLUME 84.3 fL (80-94); MONOCYTES % (AUTO) 7.4 % (1.7-9.3); NEUTROPHILS # (AUTO) 9.7 K/uL (1.8-7.7); NEUTROPHILS % (AUTO) 74.8 % (42.2-75.2); PLATELET COUNT (AUTO) 205 K/uL (140-450); RED BLOOD CELL COUNT(AUTO) 2.79 MIL/uL (4.20-5.40); RED CELL DISTRIBUTION WIDTH 13.5 % (11.6-13.7); WHITE BLOOD COUNT (AUTO) 12.9 K/uL (4.8-10.8)
[2021-04-16 06:27] LABS: ANION GAP 14.3 (8-16); CARBON DIOXIDE 24.7 mmol/L (21-32); CREATININE 1.3 mg/dL (0.6-1.3)
[2021-04-16 06:29] LABS: ALBUMIN 1.8 g/dL (3.4-5.0); ANION GAP 13.2 (8-16); CARBON DIOXIDE 25.7 mmol/L (21-32); CREATININE 1.3 mg/dL (0.6-1.3); POTASSIUM 3.9 mmol/L (3.5-5.1); TOTAL BILIRUBIN 0.4 mg/dL (0.0-1.0)
[2021-04-16 07:08] LABS: LYMPHOCYTES % (AUTO) 14.2 % (20.5-51.1)
[2021-04-16] MEDS: FAMOTIDINE 20 MG/2 ML VIAL IVP SCH (09:00)
[2021-04-16] MEDS: LEVOFLOXACIN 500 MG/D5W PREMIX 100 ML IV SCH (09:00)
[2021-04-16] MEDS: LEVOTHYROXINE 0.1 MG TAB PO SCH (09:00)
[2021-04-16] MEDS: ATORVASTATIN 20 MG TAB PO SCH (09:00)
[2021-04-16] MEDS: INSULIN LANTUS 100 UNITS/ML 10 ML VIAL SUBQ SCH ×2 (09:00→21:23)
[2021-04-16] MEDS ORDERED: VANCOMYCIN 2,000 MG in NACL 0.9% 500 ML IV SCH (10:00)
--- NOTE | 2021-04-16 10:00 | NUR ---
MD VASQUEZ ROUNDED AT PATIENT BEDSIDE. UPDATED ON CURRENT CONDITION, MEDS, LABS, CHANGES IN STATUS OVERNIGHT AND CRITICAL RESULTS. ORDERED 2 UNITS PRBCS FOR LOW HGB LEVEL. SPOKE WITH FAMILY MEMBERS TO OBTAIN CONSENT AND FAMILY PRIMARY DECISION MAKER REFUSED BLOOD TRANSFUSION DUE TO SCIENTOLOGY BELIEFS. REFUSAL NOTED AND PLACED IN CHART. MD VASQUEZ HAD NO OTHER ORDERS. WILL CONTINUE TO FOLLOW CASE CLOSELY.
--- NOTE | 2021-04-16 18:40 | NUR ---
PATIENT FOUND TO BE IN A SUDDEN OF TACHYCARDIA, HYPOXIA AND TACHYPNEA. MD CORE ANALYST DR. ESPINAL NOTIFIED IMMEDIATELY WITH ORDERS RECEIVED FOR STAT CXR. ORDER REPEATED AND CONFIRMED. WILL AWAIT FOR RESULTS AND MONITOR FOR CHANGES TO REPORT. NO FURTHER ORDERS AT THIS MOMENT.
--- NOTE | 2021-04-16 19:20 | NUR ---
RECEIVED PATIENT ON BED SEDATED WITH CONTINOUS PROPOFOL DRIP AT50 MCG/KG/MIN AND ON FENTANYL DRIP AT 1 MCG/KG/HR VIA PICC LINE TO RIGHT UPPER ARM TO KEEP RASS-3. ORALLY INTUBATED AND VENTILATED AT 60% FIO2; S02 94%.WITH CHEST TUBE IN PLACE TO RIGHT MID AXILLARY DRAINING TO SEROSANGUINOUS OUTPUTCARDIACSCOPE SHOWS ON SINUS TACHY WITH BBB, HR 127/MIN. ABDOMEN IS SOFT, VERY OBESE; TUBE FEEDING ON HOLD DUE TO LARGE AMOUNT OF RESIDUALS ENDORSED BY DAY SHIFT RN. VERNON IN SITU TO GRAVITY DRAINAGE DRAINING TO CLOUDY WITH SEDIMENTS URINE OUTPUT,PATENT AND INTACT.
--- NOTE | 2021-04-16 20:00 | NUR ---
PER CHEST XRAY RESULT IN, NO SIGNIFICANT CHANGES SEEN.
--- NOTE | 2021-04-16 20:30 | NUR ---
NGT CHECKED; WITH MINIMAL RESIDUAL NOTED; TUBE FEEDING RESTARTED AT 10 ML/HR.
--- NOTE | 2021-04-16 22:50 | NUR ---
PATIENT IS HYPOTENSIVE BP 84/58; RESTARTED LEVOPHED DRIAT 4MCG/MIN.
--- NOTE | 2021-04-16 23:30 | NUR ---
LEVOPHED DRIP TITRATED UP PER PROTOCOL.
[2021-04-17] VITALS: BP 87/59
--- NOTE | 2021-04-17 00:30 | NUR ---
TUBE FEEDING HOLD; TAPER DOWN PROPOFOL DRIP SINCE BP STILL LOW.
[2021-04-17] MEDS: fentaNYL citrate 1 MG in NACL 0.9% 80 ML IV PRN (00:46)
[2021-04-17 01:00] VITALS: BP 83/58
--- NOTE | 2021-04-17 01:05 | NUR ---
BP STILL LOW AND PATIENT IS ALREADY ON MAXIMUM DOSE OF LEVOPHED SO RESTARTED ON NEOSYNEPHRINE DRIP PER PROTOCOL.
[2021-04-17 01:07] VITALS: BP 69/52
[2021-04-17] MEDS: PHENYLEPHRINE 40 MG in NACL 0.9% 250 ML IV PRN (01:08)
--- NOTE | 2021-04-17 01:30 | NUR ---
BP STILL NOT PICKING UP, SO STOPPED BOTH SEDATION PROPOFOL AND FENTANYL DRIP.
[2021-04-17 02:00] VITALS: BP 80/53
--- NOTE | 2021-04-17 02:48 | NUR ---
PAGED THE ACCOUNTS RECEIVABLE ADMINISTRATOR ON-CALL, DR. ESPINAL BECAUSE THE PATIENT IS STILL HYPOTENSIVE BP 63/51 INSPITE OF LEVOPHED AND NEOSYNEPHRINE ALREADY ON MAXIMUM DOSE.
--- NOTE | 2021-04-17 03:00 | NUR ---
CONTINOUS CLOSE OBSERVATION AND MONITORING INSTITUTED.
[2021-04-17] MEDS: NOREPINEPHRINE 16 MG in DEXTROSE 5% 250 ML IV PRN (03:11)
--- NOTE | 2021-04-17 03:15 | NUR ---
STILL AWAITING DR. ESPINAL'S RESPONSE; PAGED HIM AGAIN
[2021-04-17] MEDS ORDERED: VASOPRESSIN 20 UNITS/ML VIAL ONE (03:27)
--- NOTE | 2021-04-17 03:30 | NUR ---
ACTIVITY THERAPY SPECIALIST ZACH IS HERE AND SHE PAGED AGAIN DR. ESPINAL; AWAITING FOR HIS RESPONSE. MEANWHILE PATIENT'S BP STILL DROPPING AND BP 60/48 HR 102.
--- NOTE | 2021-04-17 03:45 | NUR ---
PAGED THE PLATE MAKER AGAIN, DR. ESPINAL;AWAITING FOR HIS RESPONSE.
--- NOTE | 2021-04-17 03:50 | NUR ---
VETERINARY MEAT INSPECTOR ZACH SCHULTZ BOTH DR. ESPINAL AND DR. SAMS; AWAITING FOR THEIR RESPONSE
--- NOTE | 2021-04-17 03:50 | NUR ---
SINCE NO RESPONSE FROM THE TUB TENDER COMMUNITY SERVICE TECHNICIAN, TRIED TO PAGED ALSO DR. SAMS THE OTHER DOCTOR COMMUNITY SERVICE TECHNICIAN FROM THE [facility].
--- NOTE | 2021-04-17 04:05 | NUR ---
STILL NO RESPONSE FROM DR. ESPINAL NOR DR. SAMS SO WE DECIDED TO CALL THE CHUCKING MACHINE SET UP OPERATOR TOOL, DR. MENON; AND COAT HANGER SHAPER MACHINE OPERATOR DR. PETERSON ANSWER MY PAGED AND TOLD HER ABOUT THE ABOVE SITUATION, AND SHE TOLD ME THAT SHE WILL CALL OR TEXT DR. MENON ABOUT IT.
--- NOTE | 2021-04-17 04:08 | NUR ---
RECEIVED A CALL FROM DR. MENON AND TOLD HIM ABOUT THE ABOVE SITUATION THAT I CAN'T GET HOLD FROM THE DOCTORS KYLIE NOR DR. HOWARDHAND HE GAVE ME THE CELL PHONE NUMBER OF DR. DR. ESPINAL AND I IMMEDIATELY CALLED HIM AT 0411 ON HIS CP BUT HE DIDN'T ANSWER AND I JUST LEFT A VOICE MESSAGE TO CALL ICU IMMEDIATELY.
--- NOTE | 2021-04-17 04:13 | NUR ---
STILL NO RESPONSE FROM DR. ESPINAL NOR DR. SAMS SO I PAGED BOTH OF THEM AGAIN. PATIENT'S BP AT THIS TIME IS 50/39 HR 79/MIN.; PATIENT IS ALREADY ON MAXIMUM DOSE OF BOTH LEVOPHED AND NEOSYNEPHRINE DRIP
--- NOTE | 2021-04-17 04:20 | NUR ---
PATIENT IN SEVERE BRADYCARDIA, AND NO PULSE APPRECIATED ; CALLED FOR THE CODE; CPR STARTED; CODE TEAM CAME HEADED BY ER MD DR. WALLS. ALL EMERGENCY MEDICATIONS GIVEN BUT TO NO AVAIL; PRONOUNCED AT [address] WALLS.
--- NOTE | 2021-04-17 04:30 | NUR ---
PATIENT'S FAMILY OR SON LUCAS PARKER NOTIFIED AND INFORM BY TELEPHONE.
--- NOTE | 2021-04-17 04:56 | NUR ---
FINALLY CALLED BACK AND INFORMED HIM ABOUT THE ABOVE SITUATION.
--- NOTE | 2021-04-17 05:00 | NUR ---
PATIENT'S 2 SON CAME IN AND UPDATED THEM ABOUT WHAT HAPPENED.
--- NOTE | 2021-04-17 05:10 | NUR ---
BODY WAS REPORTED TO [facility] [employer] AND CHANGE MANAGEMENT FACILITATOR AND WAS RELEASED WITHOUT GIVING ANY CASE NUMBER.
--- NOTE | 2021-04-17 09:40 | NUR ---
CALLED [facility] TO FOLLOW UP ON ETA. ETA [id number]
--- NOTE | 2021-04-17 10:05 | NUR ---
REMAINS AND BELONGINGS PICKED UP BY [facility]
== END 2021-04-17 10:05 | DRG 133 ==
LOC: MED 23:25 → MMU 04-13 05:52 → MIC 04-13 06:12
PROVIDERS: ADMIT Internal Medicine; ATTEND Internal Medicine
PROC: 5A1945Z Respiratory Ventilation, 24-96 Consecutive Hours (ICD-10-PCS; principal; 2021-04-13)
PROC: 0BH17EZ Insertion of Endotracheal Airway into Trachea, Via Natural or Artificial Opening (ICD-10-PCS; 2021-04-13)
PROC: 5A12012 Performance of Cardiac Output, Single, Manual (ICD-10-PCS; 2021-04-13)
PROC: 02H633Z Insertion of Infusion Device into Right Atrium, Percutaneous Approach (ICD-10-PCS; 2021-04-13)
PROC: 0BH17EZ Insertion of Endotracheal Airway into Trachea, Via Natural or Artificial Opening (ICD-10-PCS; 2021-04-14)
PROC: 0W9930Z Drainage of Right Pleural Cavity with Drainage Device, Percutaneous Approach (ICD-10-PCS; 2021-04-14)
PROC: 5A12012 Performance of Cardiac Output, Single, Manual (ICD-10-PCS; 2021-04-17)
PROC: 5A2204Z Restoration of Cardiac Rhythm, Single (ICD-10-PCS; 2021-04-17)
DX: J96.01 Acute respiratory failure with hypoxia (principal); I46.2 Cardiac arrest due to underlying cardiac condition; G93.49 Other encephalopathy; I50.33 Acute on chronic diastolic (congestive) heart failure; G93.41 Metabolic encephalopathy; I21.A1 Myocardial infarction type 2; I95.9 Hypotension, unspecified; D62 Acute posthemorrhagic anemia; E66.2 Morbid (severe) obesity with alveolar hypoventilation; T88.6XXA Anaphylactic reaction due to adverse effect of correct drug or medicament properly administered, initial encounter; G93.1 Anoxic brain damage, not elsewhere classified; J98.2 Interstitial emphysema; E11.65 Type 2 diabetes mellitus with hyperglycemia; Z68.43 Body mass index [BMI] 50.0-59.9, adult; I11.0 Hypertensive heart disease with heart failure; I35.0 Nonrheumatic aortic (valve) stenosis; J45.909 Unspecified asthma, uncomplicated; I44.7 Left bundle-branch block, unspecified; J96.02 Acute respiratory failure with hypercapnia; J93.9 Pneumothorax, unspecified; E03.9 Hypothyroidism, unspecified; I49.01 Ventricular fibrillation; T50.8X5A Adverse effect of diagnostic agents, initial encounter; Y92.238 Other place in hospital as the place of occurrence of the external cause; Z79.899 Other long term (current) drug therapy; Z88.0 Allergy status to penicillin; Z88.6 Allergy status to analgesic agent; Z88.5 Allergy status to narcotic agent
CPT/HCPCS: 31500; 36415; 36600; 71045; 71275; 80048; 80053; 80202; 80305; 81001; 82550; 82553; 82803; 83036; 83690; 83735; 84100; 84484; 85025; 85379; 85610; 85730; 86704; 86706; 86708; 86709; 86803; 87040; 87070; 87081; 87086; 87205; 87340; 92950; 93005; 94002; 94003; 94640; 99291; J0171; J0330; J1200; J1644; J1815; J1940; J1956; J2270; J2370; J2405; J2704; J2930; J3010; J3370; J3490; J7030; J7060; J7612; J7614; J7644; Q0092; Q9967